=== PATIENT | female | born 2000 | race Caucasian/White ===

== ENCOUNTER 2025-07-05 18:47 | Inpatient (IN) | payer SELFPAY ==
[~2025-07-05] VITALS: Ht 165.1 cm; Wt 63.7 kg
[2025-07-05 18:54] VITALS: O2SAT 98
[2025-07-05] MEDS: ACETAMINOPHEN 500MG TABLET PO ONE (19:15)
[2025-07-05 19:19] LABS: CLARITY URINE CLOUDY (CLEAR); COLOR URINE YELLOW (YELLOW); GLUCOSE URINE NEGATIVE (NEGATIVE); KETONES URINE 1+ (NEGATIVE); LEUKOCYTE ESTERASE URINE 2+ (NEGATIVE); NITRITE URINE POSITIVE (NEGATIVE); OCCULT BLOOD URINE 2+ (NEGATIVE); PH URINE 7.0 (4.5-8.0); PROTEIN URINE 1+ (NEGATIVE); SPECIFIC GRAVITY URINE 1.017 (1.005-1.030); UROBILINOGEN URINE 0.2 E.U./dL (0.2-1.0)
[2025-07-05 19:30] LABS: BASOPHILS % 0.1 % (0.0-2.0); EOSINOPHILS % 0.1 % (0.0-5.0); HEMATOCRIT. 40.0 % (36.0-48.0); HEMOGLOBIN. 13.4 g/dL (12.0-16.0); LYMPHOCYTES % 13.2 % (20.0-50.0); MEAN PLATELET VOLUME 8.4 fl (7.4-10.4); MONOCYTES % 9.8 % (2.0-8.0); NEUTROPHILS % 76.8 % (40.0-76.0); PLATELET 227 x1000/uL (130-400); RED BLOOD CELL COUNT 4.51 mill/uL (4.2-5.4); RED CELL DISTRIBUTION WIDTH 13.7 % (11.6-14.6)
[2025-07-05 19:42] LABS: BACTERIA URINE 4+
[2025-07-05 19:43] LABS: CREATININE 0.8 mg/dL (0.6-1.0)
[2025-07-05 19:43] LABS: SQUAMOUS EPITHELIAL CELL URINE 1+ /lpf (RARE/1+)
[2025-07-05 19:44] LABS: WBC URINE 25-50 /hpf (0-2)
[2025-07-05 19:44] LABS: UREA NITROGEN BLOOD 9 mg/dL (9-23)
[2025-07-05 19:45] LABS: ASPARTATE AMINOTRANSFERASE 18 IU/L (<34)
[2025-07-05 19:46] LABS: BILIRUBIN DIRECT 0.3 mg/dL (<=3.0); BILIRUBIN TOTAL 1.0 mg/dL (0.1-1.0); HCG SCREEN NEGATIVE; PROTEIN TOTAL 8.5 g/dL (6.0-8.3)
[2025-07-05] MEDS ORDERED: ACETAMINOPHEN 500MG TABLET PO ONE (20:15)
[2025-07-05] MEDS ORDERED: KETOROLAC 15MG/ML VIAL IV ONE (20:15)
[2025-07-05] MEDS ORDERED: FAMOTIDINE 20MG/2ML VIAL IV ONE (20:15)
[2025-07-05] MEDS: SODIUM CHLORIDE 0.9% (SEPSIS BOLUS) IV ONE (21:14)
[2025-07-05 21:22] LABS: INR 1.2
[2025-07-05] MEDS: CEFTRIAXONE 1GM/50ML 50 ML IV ONE (21:23)
[2025-07-05] MEDS ORDERED: ONDANSETRON HCL 4MG/2ML INJ IV PRN (21:30)
[2025-07-05] MEDS ORDERED: MORPHINE SULFATE 4 MG/ML INJ (FOR IV/IM USE) IV PRN (21:30)
[2025-07-05] MEDS ORDERED: MAGNESIUM/ALUMINUM HYDROXIDE/SIMETHICONE 30ML UDC PO PRN (21:30)
[2025-07-05] MEDS ORDERED: HYDROCODONE/ACETAMINOPHEN 5/325MG TABLET PO PRN (21:30)
[2025-07-05] MEDS ORDERED: CLONIDINE 0.1MG TABLET PO PRN (21:30)
[2025-07-05] MEDS ORDERED: ZOLPIDEM TARTRATE 5MG TABLET PO PRN (21:30)
[2025-07-05] MEDS: METRONIDAZOLE 500 MG PREMIX 100 ML IV ONE (21:59)
[2025-07-05] MEDS: SODIUM CHLORIDE 0.9% 1,000 ML IV ONE (22:46)
[2025-07-05] MEDS: ONDANSETRON 4MG ODT PO ONE (22:47)
[2025-07-05] MEDS: MORPHINE SULFATE 4 MG/ML INJ (FOR IV/IM USE) IV ONE (22:52)
[2025-07-05] MEDS: MAGNESIUM/ALUMINUM HYDROXIDE/SIMETHICONE 30ML UDC PO ONE (22:53)
[2025-07-05] MEDS: KETOROLAC 15MG/ML VIAL IV SCH (22:54)
[2025-07-05] MEDS: ONDANSETRON HCL 4MG/2ML INJ IV ONE (22:55)
[2025-07-05] MEDS ORDERED: NALOXONE HCL 0.4MG/ML VIAL IV PRN (23:00)
[2025-07-06] MEDS: SODIUM CHLORIDE 0.9% 1,000 ML IV SCH (00:55)
[2025-07-06] MEDS: PIPERACILLIN/TAZO 3.375G/50ML 50 ML IV SCH (00:56)
[2025-07-06] MEDS: FAMOTIDINE 20MG/2ML VIAL IV NR (01:11)
[2025-07-06] MEDS: ACETAMINOPHEN 325MG TABLET PO PRN (01:11)
[2025-07-06 01:33] VITALS: BP 98/58; PULSE 80; RESP 21; TEMP 36.7516
[2025-07-06 05:47] LABS: CREATININE 0.6 mg/dL (0.6-1.0)
[2025-07-06 05:48] LABS: UREA NITROGEN BLOOD 7 mg/dL (9-23)
[2025-07-06 06:01] LABS: BASOPHILS % 0.1 % (0.0-2.0); EOSINOPHILS % 0.4 % (0.0-5.0); HEMATOCRIT. 35.1 % (36.0-48.0); HEMOGLOBIN. 11.7 g/dL (12.0-16.0); LYMPHOCYTES % 17.6 % (20.0-50.0); MEAN PLATELET VOLUME 9.1 fl (7.4-10.4); MONOCYTES % 13.1 % (2.0-8.0); NEUTROPHILS % 68.8 % (40.0-76.0); PLATELET 197 x1000/uL (130-400); RED BLOOD CELL COUNT 3.93 mill/uL (4.2-5.4); RED CELL DISTRIBUTION WIDTH 13.5 % (11.6-14.6)
[2025-07-06 08:00] VITALS: BP 99/76; PULSE 76; RESP 16; TEMP 36.7; O2SAT 100
[2025-07-06] MEDS: ENOXAPARIN 40MG/0.4ML SYR SUBCUT SCH (08:57)
[2025-07-06] MEDS: PANTOPRAZOLE SODIUM 40 MG/VIAL IV SCH (08:58)
[2025-07-06 10:02] LABS: *AMPHETAMINES SCREEN URINE NEGATIVE (NEGATIVE); *BARBITURATES SCREEN URINE NEGATIVE (NEGATIVE); *BENZODIAZEPINES SCREEN URINE NEGATIVE (NEGATIVE); *COCAINE SCREEN URINE NEGATIVE (NEGATIVE); CANNABINOID URINE SCREEN NEGATIVE (NEGATIVE); METHADONE URINE SCREEN NEGATIVE (NEGATIVE); OPIATES URINE SCREEN NEGATIVE (NEGATIVE); PHENCYCLIDINE URINE SCREEN NEGATIVE (NEGATIVE)
[2025-07-06 10:03] LABS: ECSTASY MDMA SCREEN URINE NEGATIVE (NEGATIVE)
[2025-07-06 12:00] VITALS: BP 100/63; PULSE 76; RESP 16; TEMP 36.7; O2SAT 98
[2025-07-06 14:00] VITALS: BP 104/69; PULSE 75; RESP 16; TEMP 36.9; O2SAT 98
[2025-07-06 16:00] VITALS: BP 104/69; PULSE 75; RESP 16; TEMP 36.9; O2SAT 98
[2025-07-06] MEDS ORDERED: LEVO750T68 MT (16:28)
[2025-07-06 16:55] VITALS: BP 104/74; PULSE 75; RESP 16; TEMP 98.5
== END 2025-07-06 17:20 | disposition home or self-care (01) | DRG 720 ==
LOC: ER 18:59 → EDBEDREQTM 21:07 → EDBEDREQ 21:07 → ENRESERV 22:22 → 6WST 23:21
PROVIDERS: ADMIT Internal Medicine; ATTEND Internal Medicine
DX: A41.9 Sepsis, unspecified organism (principal); N10 Acute pyelonephritis; R82.998 Other abnormal findings in urine
CPT/HCPCS: 36415; 71045; 74176; 76830; 76856; 80048; 80076; 80305; 81003; 83605; 84145; 84443; 84703; 85025; 87077; 87186; 93005; 93970; 93976; 99285; A4606; J0696; J1308; J1650; J1885; J2270; J2405; J2470; J2543; J3490; J7030